=== PATIENT | male | born 1970 | race Caucasian/White ===

== ENCOUNTER → 2020-12-10 | Outpatient (CLI) | payer OTHER | END | disposition home or self-care (01) | LOC: XYW 10:06 | PROVIDERS: ATTEND Family Medicine | DX: R93.7 Abnormal findings on diagnostic imaging of other parts of musculoskeletal system (principal); R93.89 Abnormal findings on diagnostic imaging of other specified body structures; R59.0 Localized enlarged lymph nodes; M79.89 Other specified soft tissue disorders | CPT/HCPCS: 70490 ==

== ENCOUNTER → 2020-12-18 | Outpatient (CLI) | payer OTHER ==
[2020-12-18 08:27] LABS: Basophils # (auto) 0.1 10 ^3/uL (0-0.2); Basophils % (auto) 1.2 % (0.0-2.0); Eosinophils # (auto) 0.2 10 ^3/uL (0-0.8); Eosinophils % (auto) 3.6 % (0.0-7.0); Hemoglobin 17.1 g/dL (13.5-17.5); Lymphocytes # (auto) 2.1 10 ^3/uL (0.4-5.4); Lymphocytes % (auto) 32.5 % (10.0-50.0); Mean Corpuscular Hemoglobin 31.3 pg (28.0-32.0); Mean Corpuscular Volume 86.4 fL (80.0-100.0); Monocytes # (auto) 0.4 10 ^3/uL (0-1.3); Monocytes % (auto) 5.9 % (0.0-12.0); Neutrophils # (auto) 3.6 10 ^3/uL (1.6-8.6); Neutrophils % (auto) 56.8 % (37.0-80.0); Nucleated Red Blood Cells % 0.1 %; Red Blood Cells 5.46 10^6/uL (4.5-5.90); Red Cell Distribution Width 13.7 % (11.8-14.3); White Blood Cell 6.4 10^3/uL (4.4-10.8)
[2020-12-18 08:45] LABS: INR 1.03 (0.9-1.15); Partial Thromboplastin Time 29.5 sec (23.0-31.2)
[2020-12-18 08:49] LABS: Urine Specific Gravity 1.021 (1.001-1.035)
[2020-12-18 08:50] LABS: Urine Bacteria NONE SEEN /hpf (None Seen); Urine Blood Negative /uL (Negative); Urine Mucus FEW (None Seen); Urine WBC <1 /hpf (0 - 3)
[2020-12-18 09:01] LABS: Potassium 4.1 mmol/L (3.5-5.1)
[2020-12-18 09:10] LABS: Albumin 3.8 g/dL (3.4-5.0); BUN/Creatinine Ratio 21.1; Calcium 8.3 mg/dL (8.5-10.1); Total Protein 7.4 g/dL (6.4-8.2)
== END | disposition home or self-care (01) ==
LOC: LAB 08:04
PROVIDERS: ATTEND Family Medicine
DX: Z01.812 Encounter for preprocedural laboratory examination (principal); E66.9 Obesity, unspecified; R22.1 Localized swelling, mass and lump, neck
CPT/HCPCS: 36415; 80053; 80061; 81001; 83036; 84153; 84443; 85025; 85610; 85730

== ENCOUNTER → 2020-12-26 | Outpatient (CLI) | payer OTHER | END | disposition home or self-care (01) | LOC: US 13:03 | PROVIDERS: ATTEND Family Medicine | DX: R22.1 Localized swelling, mass and lump, neck (principal); C44.92 Squamous cell carcinoma of skin, unspecified | CPT/HCPCS: 38505; 76536; 76942 ==